=== PATIENT | male | born 1935 | race Caucasian/White ===

== ENCOUNTER 2021-06-06 17:25 | Inpatient (IN) | payer MEDICARE ==
[2021-06-06 18:07] LABS: Hemoglobin 9.7 g/dL (14.0-18.0); Mean Corpuscular HGB CONC 35.3 g/dL (32.0-36.0); Mean Platelet Volume 8.4 fL (7.4-10.4); Platelet Count 314 thou/uL (130-400); RBC Distribution Width 17.4 % (11.5-14.5); Red Blood Cell (RBC) Count 2.35 mill/uL (4.70-6.10); White Blood Cell (WBC) Count 2.6 thou/uL (4.8-10.8)
[2021-06-06 18:17] LABS: INR-International Normal Ratio 1.5; PTT 35.7 sec (22.9-36.1); Prothrombin Time 18.3 sec (12.0-14.7)
[2021-06-06 18:29] LABS: ALT (SGPT) 18 U/L (8-55); AST (SGOT) 15 U/L (5-34); Alkaline Phosphatase 61 U/L (40-110); Anion Gap 17 mmol/L (10-20); BUN (Urea Nitrogen) 19 mg/dL (8.4-25.7); Bilirubin, Total 3.1 mg/dL (0.2-1.2); Calc. Creatinine Clearance 0 mL/min (70-130); Calcium 8.2 mg/dL (7.8-10.44); Carbon Dioxide 20 mmol/L (23-31); Chloride 102 mmol/L (98-107); Globulin 2.9 g/dL (2.4-3.5); Glucose 187 mg/dL (83-110); Potassium 3.9 mmol/L (3.5-5.1); Protein, Total 5.9 g/dL (5.8-8.1); Sodium 135 mmol/L (136-145)
[2021-06-06 18:30] LABS: Anisocytosis SLIGHT = 6-15 cells (100X) (0-5/hpf); Band 19 % (5-11); Large Platelets SLIGHT; Lymphocytes 14 % (21-51); MDiff Complete? YES; Macrocytosis SLIGHT = 6-15 cells (100X) (0-5/hpf); Metamyelocyte 2 % (0-0); Monocytes 12 % (0-10); Myelocyte 2 % (0-0); Neutrophil 49 % (42-75); Nucleated RBC 1 % (0); Ovalocytes SLIGHT = 2-5 cells (100X) (0-1/hpf); Platelet Morphology Comment Appears Adequate; Polychromasia SLIGHT = 2-3 cells (100X) (0-2/hpf); Reactive Lymphocytes 2 % (0-10); Tear Drops SLIGHT = 2-5 cells (100X) (0-1/hpf)
[2021-06-06] MEDS ORDERED: Cefepime 2 GM VIAL ONE (18:36)
[2021-06-06 20:06] LABS: Bacteria/HPF 1+ HPF (None Seen); Bilirubin Negative (Negative); Blood, Urine 2+ (Negative); Clarity Clear (Clear); Glucose, Urine (Dipstick) 70 mg/dL (Negative); Ketone, Urine 10 mg/dL (Negative); Leukocyte Negative Leu/uL (Negative); Nitrite Negative (Negative); Protein, Urine (Dipstick) 10 mg/dL (Neg-Trace); Specific Gravity, Urine 1.011 (1.002-1.036); Squamous Epithelial None Seen HPF (0-3); Urobilinogen Normal mg/dL (Less than 2)
[2021-06-06] MEDS ORDERED: Dexamethasone 10 MG/ML VIAL ONE (20:41)
[2021-06-06] MEDS ORDERED: Vancomycin 1.5 GRAM/300 ML BAG 1.5 GM in Premix Bag 1 BAG IVPB SCH (21:00)
[2021-06-06 21:18] LABS: Lactic Acid 2.4 mmol/L (0.5-2.2)
[2021-06-07] MEDS ORDERED: Acetaminophen 325 MG TAB PO PRN (06:22)
[2021-06-07] MEDS ORDERED: Ondansetron PF 4 MG/2 ML Vial IVP PRN (06:22)
[2021-06-07] MEDS ORDERED: HumaLOG 300 UNITS/3 ML VIAL SC PRN ×2 (06:39)
[2021-06-07] MEDS ORDERED: Dextrose 50% Abboject 50 ML SYRINGE SLOW IVP PRN (06:39)
[2021-06-07] MEDS ORDERED: Dextrose 5% in Water 1,000 ML IV PRN (06:39)
[2021-06-07] MEDS ORDERED: Sodium Chloride 0.9% 500 ML IV SCH (06:45)
[2021-06-07 07:29] LABS: ALT (SGPT) 15 U/L (8-55); AST (SGOT) 13 U/L (5-34); Albumin 2.7 g/dL (3.4-4.8); Alkaline Phosphatase 59 U/L (40-110); Anion Gap 16 mmol/L (10-20); BUN (Urea Nitrogen) 21 mg/dL (8.4-25.7); Bilirubin, Direct 1.1 mg/dL (0.1-0.3); Bilirubin, Total 2.5 mg/dL (0.2-1.2); CRP (Inflammatory) 7.54 mg/dL (= or < 0.5); Calc. Creatinine Clearance 0 mL/min (70-130); Carbon Dioxide 16 mmol/L (23-31); Chloride 105 mmol/L (98-107); Glucose 269 mg/dL (83-110); Potassium 4.1 mmol/L (3.5-5.1); Protein, Total 5.7 g/dL (5.8-8.1); Sodium 133 mmol/L (136-145)
[2021-06-07] MEDS ORDERED: Zinc Sulfate 220 MG CAP ONE (08:55)
[2021-06-07] MEDS ORDERED: Dexamethasone 4 MG TAB ONE (08:58)
[2021-06-07] MEDS ORDERED: Enoxaparin Sodium 40 MG/0.4 ML SYRINGE SC SCH (09:00)
[2021-06-07] MEDS ORDERED: Famotidine 20 MG TAB ONE (09:31)
[2021-06-07] MEDS: Famotidine 20 MG TAB PO SCH ×2 (09:31→20:27)
[2021-06-07] MEDS: Zinc Sulfate 220 MG CAP PO SCH (09:31)
[2021-06-07] MEDS: Apixaban 5 MG TAB PO SCH ×2 (09:31→20:27)
[2021-06-07] MEDS: Dexamethasone 10 MG/ML VIAL SLOW IVP SCH ×2 (09:56→20:56)
[2021-06-07] MEDS: Ascorbic Acid 500 mg Chewable Tablet PO SCH (10:20)
[2021-06-07] MEDS ORDERED: Cefepime 2 GM VIAL ONE (12:06)
[2021-06-07] MEDS: Cefepime 2 GM in Sodium Chloride 0.9% 100 ML IVPB SCH ×2 (12:09→20:20)
[2021-06-07] MEDS ORDERED: HumaLOG 300 UNITS/3 ML VIAL ONE (13:03)
[2021-06-07 13:15] LABS: SARS-CoV-2 PCR by NAA DETECTED (NotDetected)
[2021-06-07 19:43] VITALS: BMI 22.5
[2021-06-07] MEDS ORDERED: VANCOMYCIN 1.25 GM/250 ML BAG 1.25 GM in Premix Bag 1 BAG IVPB SCH (21:00)
[2021-06-08] MEDS: Cefepime 2 GM in Sodium Chloride 0.9% 100 ML IVPB SCH ×2 (03:51→12:03)
[2021-06-08 04:39] LABS: Anion Gap 10 mmol/L (10-20); BUN (Urea Nitrogen) 24 mg/dL (8.4-25.7); CRP (Inflammatory) 5.43 mg/dL (= or < 0.5); Calc. Creatinine Clearance 78 mL/min (70-130); Calcium 7.9 mg/dL (7.8-10.44); Carbon Dioxide 21 mmol/L (23-31); Chloride 107 mmol/L (98-107); Glucose 269 mg/dL (83-110); Potassium 4.3 mmol/L (3.5-5.1); Sodium 134 mmol/L (136-145)
[2021-06-08 04:48] LABS: Band 13 % (5-11); Hemoglobin 8.1 g/dL (14.0-18.0); Lymphocytes 21 % (21-51); MDiff Complete? YES; Macrocytosis SLIGHT = 6-15 cells (100X) (0-5/hpf); Mean Corpuscular HGB CONC 33.4 g/dL (32.0-36.0); Mean Corpuscular Hemoglobin 39.2 pg (27.0-31.0); Mean Platelet Volume 8.4 fL (7.4-10.4); Monocytes 5 % (0-10); Myelocyte 2 % (0-0); Neutrophil 59 % (42-75); Platelet Count 256 thou/uL (130-400); Red Blood Cell (RBC) Count 2.06 mill/uL (4.70-6.10); Rouleaux Formation SLIGHT = 1-5 cells (100X) (None Seen)
[2021-06-08] MEDS: Apixaban 5 MG TAB PO SCH (08:51)
[2021-06-08] MEDS: Famotidine 20 MG TAB PO SCH (08:52)
[2021-06-08] MEDS: Ascorbic Acid 500 mg Chewable Tablet PO SCH (08:52)
[2021-06-08] MEDS: Zinc Sulfate 220 MG CAP PO SCH (08:52)
[2021-06-08] MEDS ORDERED: FLU VACC QS2021-22(65YR UP)/PF 240 MCG/0.7 ML SYRINGE IM ONE (09:00)
[2021-06-08] MEDS ORDERED: Dextrose 50% Abboject 50 ML SYRINGE SLOW IVP PRN (09:44)
[2021-06-08] MEDS ORDERED: Dextrose 5% in Water 1,000 ML IV PRN (09:44)
[2021-06-08] MEDS ORDERED: HumaLOG 300 UNITS/3 ML VIAL SC PRN (09:44)
[2021-06-08] MEDS: Dexamethasone 10 MG/ML VIAL SLOW IVP SCH (12:00)
[2021-06-08 15:26] VITALS: BP 99/59; TEMP 97.5
[2021-06-08] MEDS ORDERED: glipiZIDE 5 MG TAB PO SCH (21:00)
[2021-06-09] MEDS ORDERED: Dexamethasone 10 MG/ML VIAL SLOW IVP SCH (09:00)
[2021-06-09] MEDS ORDERED: Aspirin 81 mg Enteric Coated Tablet PO SCH (09:00)
== END 2021-06-08 17:51 | disposition left against medical advice (07) | DRG 871 ==
LOC: ERS 17:25 → ERHOLD 20:35 → 2NO 06-07 16:42
PROVIDERS: ADMIT Internal Medicine; ATTEND Internal Medicine
PROC: 8E0ZXY6 Isolation (ICD-10-PCS; principal; 2021-06-06)
DX: A41.89 Other specified sepsis (principal); Z66 Do not resuscitate; U07.1 COVID-19; J12.82 Pneumonia due to coronavirus disease 2019; J96.01 Acute respiratory failure with hypoxia; G93.41 Metabolic encephalopathy; R65.20 Severe sepsis without septic shock; N40.0 Benign prostatic hyperplasia without lower urinary tract symptoms; I10 Essential (primary) hypertension; I48.91 Unspecified atrial fibrillation; D64.9 Anemia, unspecified; Z53.29 Procedure and treatment not carried out because of patient's decision for other reasons; E11.65 Type 2 diabetes mellitus with hyperglycemia; I08.3 Combined rheumatic disorders of mitral, aortic and tricuspid valves; Z28.21 Immunization not carried out because of patient refusal; Z95.0 Presence of cardiac pacemaker; Z90.49 Acquired absence of other specified parts of digestive tract; Z79.899 Other long term (current) drug therapy; Z79.82 Long term (current) use of aspirin
CPT/HCPCS: 36415; 36416; 70450; 71045; 80048; 80053; 81003; 81015; 82248; 83605; 84145; 84484; 85025; 85379; 85610; 85730; 86140; 87040; 87086; 93005; 93306; 96365; 96367; 96375; J0692; J1100; J1815; J1956; J3370; J3490; J7030; J8540; U0003; U0005

== ENCOUNTER 2023-03-03 12:06 | Inpatient (IN) | payer MEDICARE, OTHER ==
[~2023-03-03 12:06] MED LIST: Iopamidol-370 76% 500 ML MDV (1 ML CHARGE) ONE
[2023-03-03 12:31] LABS: Hematocrit 23.6 % (42.0-52.0); Mean Corpuscular HGB CONC 33.9 g/dL (32.0-36.0); Mean Corpuscular Hemoglobin 39.6 pg (27.0-31.0); Mean Corpuscular Volume 116.8 fl (78.0-98.0); Mean Platelet Volume 11.1 fL (7.4-10.4); Platelet Count 121 10x3/uL (130-400); RBC Distribution Width 18.3 % (11.5-14.5); Red Blood Cell (RBC) Count 2.02 mill/uL (4.70-6.10); White Blood Cell (WBC) Count 3.4 10x3/uL (4.8-10.8)
[2023-03-03 12:32] LABS: Delete Auto Diff?? YES; Manual Diff?? YES
[2023-03-03 12:47] LABS: INR-International Normal Ratio 1.4; PTT 32.3 sec (22.9-36.1); Prothrombin Time 17.6 sec (12.0-14.7)
[2023-03-03 12:53] LABS: ALT (SGPT) 14 U/L (8-55); AST (SGOT) 21 U/L (5-34); Alkaline Phosphatase 83 U/L (40-110); Anion Gap 15 mmol/L (10-20); BUN (Urea Nitrogen) 31 mg/dL (8.4-25.7); Bilirubin, Total 0.9 mg/dL (0.2-1.2); Calc. Creatinine Clearance 0 mL/min (70-130); Calcium 8.7 mg/dL (7.8-10.44); Carbon Dioxide 25 mmol/L (23-31); Chloride 107 mmol/L (98-107); Estimated GFR 65; Globulin 2.2 g/dL (2.4-3.5); Glucose 134 mg/dL (83-110); Potassium 3.9 mmol/L (3.5-5.1); Protein, Total 6.2 g/dL (5.8-8.1); Sodium 143 mmol/L (136-145)
[2023-03-03 13:01] LABS: Anisocytosis SLIGHT = 6-15 cells HPF (0-5); Band 2 % (5-11); CellaVision Operator ID LAB.KB; Lymphocytes 34 % (21-51); Macrocytosis MODERATE=16-30 cells HPF (0-5); Monocytes 7 % (0-10); Myelocyte 4 % (0-0); Neutrophil 54 % (42-75); Nucleated RBC (Manual Ct) 2 % (0); Ovalocytes SLIGHT = 2-5 cells HPF (0-1); Platelet Adequacy Comment Platelets Decreased; Polychromasia SLIGHT = 2-3 cells HPF (0-2); Total Cell Count 101
[2023-03-03] MEDS ORDERED: Ipratropium/Albuterol 3 ML NEB ONE (13:32)
[2023-03-03] MEDS ORDERED: Acetaminophen 500 MG TAB ONE (16:14)
[2023-03-03] MEDS ORDERED: Morphine 2 MG/ML VIAL SLOW IVP PRN (17:06)
[2023-03-03] MEDS ORDERED: traMADol HCl 50 MG TAB PO PRN (17:06)
[2023-03-03] MEDS ORDERED: Ipratropium/Albuterol 3 ML NEB NEB PRN (17:06)
[2023-03-03] MEDS ORDERED: TETANUS, DIPHTHERIA TOX,ADULT (TDVAX) 0.5 ML VIAL IM ONE (17:06)
[2023-03-03] MEDS ORDERED: hydrALAZINE 20 MG/ML VIAL SLOW IVP PRN (17:06)
[2023-03-03] MEDS ORDERED: Ondansetron ODT 4 MG TAB PO PRN (17:06)
[2023-03-03] MEDS ORDERED: Dextrose 50% Abboject 50 ML SYRINGE SLOW IVP PRN (17:43)
[2023-03-03] MEDS ORDERED: Glucagon 1 MG/ML KIT IM PRN (17:43)
[2023-03-03] MEDS ORDERED: Dextrose 5% in Water 1,000 ML IV PRN (17:43)
[2023-03-03 21:03] LABS: Troponin I 0.024 ng/mL (< 0.028)
[2023-03-03] MEDS: Sodium Chloride 0.9% 1,000 ML IV SCH (21:05)
[2023-03-03] MEDS: Acetaminophen 325 MG TAB PO SCH (21:05)
[2023-03-03] MEDS: HumaLOG 300 UNITS/3 ML VIAL SC PRN (21:05)
[2023-03-03 23:02] VITALS: BMI 31.1
[2023-03-04] MEDS: Acetaminophen 325 MG TAB PO SCH ×2 (00:34→04:56)
[2023-03-04 05:43] LABS: Hematocrit 22.1 % (42.0-52.0); Hemoglobin 7.3 g/dL (14.0-18.0); Mean Corpuscular Volume 118.2 fl (78.0-98.0); Mean Platelet Volume 11.5 fL (7.4-10.4); Platelet Count 102 10x3/uL (130-400); RBC Distribution Width 18.6 % (11.5-14.5); Red Blood Cell (RBC) Count 1.87 mill/uL (4.70-6.10)
[2023-03-04 06:10] LABS: Anion Gap 11 mmol/L (10-20); BUN (Urea Nitrogen) 26 mg/dL (8.4-25.7); Calc. Creatinine Clearance 79 mL/min (70-130); Calcium 8.6 mg/dL (7.8-10.44); Carbon Dioxide 25 mmol/L (23-31); Chloride 108 mmol/L (98-107); Estimated GFR 79; Glucose 144 mg/dL (83-110); Potassium 3.9 mmol/L (3.5-5.1); Sodium 140 mmol/L (136-145)
[2023-03-04 06:14] LABS: Delete Auto Diff?? YES; Manual Diff?? YES
[2023-03-04] MEDS ORDERED: Acetaminophen 325 MG TAB PO SCH (07:32)
[2023-03-04] MEDS ORDERED: traMADol HCl 50 MG TAB PO PRN (07:33)
[2023-03-04 08:04] LABS: Band 8 % (5-11); CellaVision Operator ID LAB.GE; Hypochromia SLIGHT = 6-15 cells HPF (0-5); Large Platelets 5.8 % (0-5); Lymphocytes 23 % (21-51); Macrocytosis SLIGHT = 6-15 cells HPF (0-5); Monocytes 15 % (0-10); Neutrophil 53 % (42-75); Ovalocytes SLIGHT = 2-5 cells HPF (0-1); Platelet Adequacy Comment Platelets Decreased; Polychromasia MODERATE = 3-4 cells HPF (0-2); Tear Drops SLIGHT = 2-5 cells HPF (0-1); Total Cell Count 120
[2023-03-04] MEDS ORDERED: FLU VACC QS2023(65UP)/MF59C/PF 60 MCG/0.5 ML SYRINGE IM ONE (09:00)
[2023-03-04] MEDS: Acetaminophen 500 MG TAB PO SCH ×3 (11:46→23:40)
[2023-03-04] MEDS: Tamsulosin HCl 0.4 MG CAP PO SCH (11:46)
[2023-03-04] MEDS: Furosemide 20 MG TAB PO SCH (11:46)
[2023-03-04] MEDS: Senokot S 8.6-50 MG TAB PO SCH ×2 (11:46→21:18)
[2023-03-04] MEDS: Gabapentin 300 MG CAP PO SCH (11:47)
[2023-03-04] MEDS: Polyethylene Glycol 3350 17 GM Packet PO SCH (11:48)
[2023-03-04 14:45] LABS: Bacteria/HPF None Seen HPF (None Seen); Bilirubin Negative (Negative); Blood, Urine Negative (Negative); Clarity Clear (Clear); Glucose, Urine (Dipstick) 70 mg/dL (Negative); Ketone, Urine Negative (Negative); Leukocyte Negative Leu/uL (Negative); Nitrite Negative (Negative); Protein, Urine (Dipstick) Negative (Neg-Trace); RBC/HPF 0-3 HPF (0-3); Specific Gravity, Urine 1.026 (1.002-1.036); Squamous Epithelial None Seen HPF (0-3); Urobilinogen Normal mg/dL (Less than 2); WBC/HPF 0-3 HPF (0-3)
[2023-03-04] MEDS ORDERED: Hydrocortisone Sod Succ/PF 100 mg/2 ml Vial IVP SCH (15:00)
[2023-03-04] MEDS: Ferrous Sulfate 325 MG TAB PO SCH (16:23)
[2023-03-04] MEDS: traMADol HCl 50 MG TAB PO SCH ×2 (17:51→23:41)
[2023-03-04] MEDS: Ipratropium/Albuterol 3 ML NEB NEB SCH ×2 (18:08→18:44)
[2023-03-04] MEDS: HumaLOG 300 UNITS/3 ML VIAL SC PRN (18:47)
[2023-03-04] MEDS: Ascorbic Acid 500 mg Chewable Tablet PO SCH (21:17)
[2023-03-04] MEDS: Sodium Chloride 0.9% 1,000 ML IV SCH (21:19)
[2023-03-04] MEDS: Hydrocortisone Sod Succ/PF 100 mg/2 ml Vial IVP SCH (21:30)
[2023-03-05] MEDS: Ipratropium/Albuterol 3 ML NEB NEB SCH ×4 (02:18→18:52)
[2023-03-05] MEDS: traMADol HCl 50 MG TAB PO SCH ×4 (05:24→22:11)
[2023-03-05] MEDS: Acetaminophen 500 MG TAB PO SCH ×4 (05:25→22:10)
[2023-03-05] MEDS: Hydrocortisone Sod Succ/PF 100 mg/2 ml Vial IVP SCH ×3 (05:25→22:11)
[2023-03-05 05:42] LABS: #Monocytes 0.4 thou/uL (0.11-0.59); #Neutrophils 2.6 thou/uL (1.40-6.50); %Lymphocytes 14.9 % (21.0-51.0); %Neutrophils 69.8 % (42.0-75.0); Hematocrit 20.1 % (42.0-52.0); Hemoglobin 6.7 g/dL (14.0-18.0); Mean Corpuscular HGB CONC 33.3 g/dL (32.0-36.0); Mean Corpuscular Hemoglobin 39.2 pg (27.0-31.0); Mean Corpuscular Volume 117.5 fl (78.0-98.0); Mean Platelet Volume 10.9 fL (7.4-10.4); RBC Distribution Width 18.6 % (11.5-14.5); Red Blood Cell (RBC) Count 1.71 mill/uL (4.70-6.10); White Blood Cell (WBC) Count 3.7 10x3/uL (4.8-10.8)
[2023-03-05 05:52] LABS: Platelet Count 82 10x3/uL (130-400)
[2023-03-05 06:24] LABS: Anisocytosis SLIGHT = 6-15 cells HPF (0-5); CellaVision Operator ID lab.abc; Macrocytosis MODERATE=16-30 cells HPF (0-5); Platelet Adequacy Comment Significant decrease; Polychromasia SLIGHT = 2-3 cells HPF (0-2)
[2023-03-05] MEDS: HumaLOG 300 UNITS/3 ML VIAL SC PRN ×2 (06:43→17:23)
[2023-03-05] MEDS: Ascorbic Acid 500 mg Chewable Tablet PO SCH ×2 (10:02→22:11)
[2023-03-05] MEDS: Gabapentin 300 MG CAP PO SCH (10:02)
[2023-03-05] MEDS: Ferrous Sulfate 325 MG TAB PO SCH ×2 (10:02→17:23)
[2023-03-05] MEDS: Tamsulosin HCl 0.4 MG CAP PO SCH (10:02)
[2023-03-05] MEDS: Senokot S 8.6-50 MG TAB PO SCH ×2 (10:02→22:11)
[2023-03-05] MEDS: Fluticasone Propionate Nasal Spray 16 gm Bottle NASAL SCH (10:03)
[2023-03-05] MEDS: Furosemide 20 MG TAB PO SCH (10:03)
[2023-03-05] MEDS: Polyethylene Glycol 3350 17 GM Packet PO SCH (10:03)
[2023-03-05 19:08] LABS: #Neutrophils 5.9 thou/uL (1.40-6.50); %Basophils 0.1 % (0.0-1.0); %Lymphocytes 8.2 % (21.0-51.0); %Monocytes 12.9 % (0.0-10.0); %Neutrophils 76.5 % (42.0-75.0); Hematocrit 21.2 % (42.0-52.0); Hemoglobin 7.1 g/dL (14.0-18.0); Mean Corpuscular HGB CONC 33.5 g/dL (32.0-36.0); Mean Corpuscular Hemoglobin 38.2 pg (27.0-31.0); Mean Platelet Volume 11.1 fL (7.4-10.4); Platelet Count 93 10x3/uL (130-400); RBC Distribution Width 22.3 % (11.5-14.5); Red Blood Cell (RBC) Count 1.86 mill/uL (4.70-6.10); White Blood Cell (WBC) Count 7.7 10x3/uL (4.8-10.8)
[2023-03-06] MEDS: Ipratropium/Albuterol 3 ML NEB NEB SCH ×5 (01:03→21:37)
[2023-03-06] MEDS: Acetaminophen 500 MG TAB PO SCH ×4 (06:16→23:47)
[2023-03-06] MEDS: traMADol HCl 50 MG TAB PO SCH ×4 (06:17→23:47)
[2023-03-06] MEDS: Hydrocortisone Sod Succ/PF 100 mg/2 ml Vial IVP SCH ×2 (06:17→21:17)
[2023-03-06 06:59] LABS: #Monocytes 0.6 thou/uL (0.11-0.59); #Neutrophils 4.1 thou/uL (1.40-6.50); %Basophils 0.2 % (0.0-1.0); %Monocytes 9.8 % (0.0-10.0); %Neutrophils 72.6 % (42.0-75.0); Hematocrit 20.2 % (42.0-52.0); Hemoglobin 6.9 g/dL (14.0-18.0); Mean Corpuscular HGB CONC 34.2 g/dL (32.0-36.0); Mean Corpuscular Hemoglobin 38.8 pg (27.0-31.0); Mean Corpuscular Volume 113.5 fl (78.0-98.0); Mean Platelet Volume 11.7 fL (7.4-10.4); Platelet Count 93 10x3/uL (130-400); RBC Distribution Width 21.7 % (11.5-14.5); Red Blood Cell (RBC) Count 1.78 mill/uL (4.70-6.10); White Blood Cell (WBC) Count 5.6 10x3/uL (4.8-10.8)
[2023-03-06 07:22] LABS: ALT (SGPT) 12 U/L (8-55); AST (SGOT) 11 U/L (5-34); Albumin 3.5 g/dL (3.4-4.8); Alkaline Phosphatase 64 U/L (40-110); Anion Gap 12 mmol/L (10-20); BUN (Urea Nitrogen) 22 mg/dL (8.4-25.7); Bilirubin, Total 0.9 mg/dL (0.2-1.2); Calc. Creatinine Clearance 67 mL/min (70-130); Calcium 8.4 mg/dL (7.8-10.44); Carbon Dioxide 23 mmol/L (23-31); Chloride 106 mmol/L (98-107); Estimated GFR 65; Globulin 2.2 g/dL (2.4-3.5); Glucose 275 mg/dL (83-110); Potassium 4.3 mmol/L (3.5-5.1); Protein, Total 5.7 g/dL (5.8-8.1); Sodium 137 mmol/L (136-145)
[2023-03-06 08:00] LABS: CellaVision Operator ID LAB.GE; Hypochromia SLIGHT = 6-15 cells HPF (0-5); Large Platelets 8.5 % (0-5); Ovalocytes SLIGHT = 2-5 cells HPF (0-1); Platelet Adequacy Comment Platelets Decreased; Polychromasia MODERATE = 3-4 cells HPF (0-2)
[2023-03-06] MEDS: Tamsulosin HCl 0.4 MG CAP PO SCH (09:09)
[2023-03-06] MEDS: Ascorbic Acid 500 mg Chewable Tablet PO SCH ×2 (09:09→21:16)
[2023-03-06] MEDS: Gabapentin 300 MG CAP PO SCH (09:09)
[2023-03-06] MEDS: Furosemide 20 MG TAB PO SCH (09:09)
[2023-03-06] MEDS: Ferrous Sulfate 325 MG TAB PO SCH ×2 (09:09→16:19)
[2023-03-06] MEDS: Fluticasone Propionate Nasal Spray 16 gm Bottle NASAL SCH (09:10)
[2023-03-06] MEDS: Polyethylene Glycol 3350 17 GM Packet PO SCH (10:26)
[2023-03-06] MEDS: Senokot S 8.6-50 MG TAB PO SCH ×2 (10:26→21:16)
[2023-03-06] MEDS: HumaLOG 300 UNITS/3 ML VIAL SC PRN ×2 (13:28→22:53)
[2023-03-06 14:31] LABS: Immunoglob - A (Total IgA) 144 mg/dL (101-645); Immunoglob - G (Total IgG) 1041 mg/dL (Not Available); Immunoglob - M (Total IgM) 81 mg/dL (22-240)
[2023-03-07] MEDS: Acetaminophen 500 MG TAB PO SCH ×3 (05:32→17:18)
[2023-03-07] MEDS: traMADol HCl 50 MG TAB PO SCH ×3 (05:33→17:18)
[2023-03-07 06:26] LABS: Hematocrit 22.8 % (42.0-52.0); Hemoglobin 7.6 g/dL (14.0-18.0); Mean Corpuscular HGB CONC 33.3 g/dL (32.0-36.0); Mean Corpuscular Hemoglobin 37.1 pg (27.0-31.0); Mean Corpuscular Volume 111.2 fl (78.0-98.0); Mean Platelet Volume 12.1 fL (7.4-10.4); Platelet Count 102 10x3/uL (130-400); RBC Distribution Width 22.4 % (11.5-14.5); Red Blood Cell (RBC) Count 2.05 mill/uL (4.70-6.10); White Blood Cell (WBC) Count 4.7 10x3/uL (4.8-10.8)
[2023-03-07 06:27] LABS: Delete Auto Diff?? YES; Manual Diff?? YES
[2023-03-07 06:34] LABS: Anion Gap 13 mmol/L (10-20); BUN (Urea Nitrogen) 25 mg/dL (8.4-25.7); Calc. Creatinine Clearance 67 mL/min (70-130); Calcium 8.4 mg/dL (7.8-10.44); Carbon Dioxide 25 mmol/L (23-31); Chloride 104 mmol/L (98-107); Estimated GFR 65; Glucose 285 mg/dL (83-110); Magnesium 1.9 mg/dL (1.6-2.6); Phosphorus 2.9 mg/dL (2.3-4.7); Potassium 4.1 mmol/L (3.5-5.1); Sodium 138 mmol/L (136-145)
[2023-03-07] MEDS: HumaLOG 300 UNITS/3 ML VIAL SC PRN ×2 (06:52→14:13)
[2023-03-07 07:29] LABS: Band 10 % (5-11); CellaVision Operator ID LAB.GE; Hypochromia SLIGHT = 6-15 cells HPF (0-5); Large Platelets 4.7 % (0-5); Lymphocytes 12 % (21-51); Macrocytosis SLIGHT = 6-15 cells HPF (0-5); Metamyelocyte 1 % (0-0); Monocytes 7 % (0-10); Myelocyte 4 % (0-0); Neutrophil 66 % (42-75); Nucleated RBC (Manual Ct) 1 % (0); Ovalocytes SLIGHT = 2-5 cells HPF (0-1); Platelet Adequacy Comment Platelets Decreased; Polychromasia SLIGHT = 2-3 cells HPF (0-2); Total Cell Count 107
[2023-03-07] MEDS: Ipratropium/Albuterol 3 ML NEB NEB SCH ×2 (07:46→12:30)
[2023-03-07] MEDS: Senokot S 8.6-50 MG TAB PO SCH (08:36)
[2023-03-07] MEDS: Furosemide 20 MG TAB PO SCH (08:36)
[2023-03-07] MEDS: Ascorbic Acid 500 mg Chewable Tablet PO SCH (08:36)
[2023-03-07] MEDS: Ferrous Sulfate 325 MG TAB PO SCH ×2 (08:36→17:18)
[2023-03-07] MEDS: Tamsulosin HCl 0.4 MG CAP PO SCH (08:36)
[2023-03-07] MEDS: Fluticasone Propionate Nasal Spray 16 gm Bottle NASAL SCH (08:37)
[2023-03-07] MEDS: Gabapentin 300 MG CAP PO SCH (08:38)
[2023-03-07] MEDS: Hydrocortisone Sod Succ/PF 100 mg/2 ml Vial IVP SCH (08:38)
[2023-03-07] MEDS: Polyethylene Glycol 3350 17 GM Packet PO SCH (08:39)
[2023-03-07 13:37] LABS: Kappa Lambda Light Chain Ratio 1.52 (0.26-1.65); Kappa Light Chains 30.3 mg/L (3.3-19.4); Lambda Light Chain 19.9 mg/L (5.7-26.3)
[2023-03-07 16:37] VITALS: BP 113/62; TEMP 98.8
[2023-03-08 21:13] LABS: Beta-2-Microglobulin 2.8 mg/L (0.6-2.4)
[2023-03-10 16:13] LABS: IgA - Total IgA (Sendout) 151 mg/dL (61-437); Immunoglobulin - G (Sendout) 1001 mg/dL (603-1613); Immunoglobulin - M (Sendout) 75 mg/dL (15-143)
== END 2023-03-07 17:30 | DRG 536 ==
LOC: ERS 12:06 → SJJU 17:10
PROVIDERS: ADMIT Specialist; ATTEND Specialist
PROC: 30233N1 Transfusion of Nonautologous Red Blood Cells into Peripheral Vein, Percutaneous Approach (ICD-10-PCS; principal; 2023-03-05)
DX: S32.592A Other specified fracture of left pubis, initial encounter for closed fracture (principal); S32.10XA Unspecified fracture of sacrum, initial encounter for closed fracture; D61.818 Other pancytopenia; D62 Acute posthemorrhagic anemia; C90.00 Multiple myeloma not having achieved remission; S32.302A Unspecified fracture of left ilium, initial encounter for closed fracture; V80.010A Animal-rider injured by fall from or being thrown from horse in noncollision accident, initial encounter; Z79.899 Other long term (current) drug therapy; Z79.01 Long term (current) use of anticoagulants; Z79.84 Long term (current) use of oral hypoglycemic drugs; I48.91 Unspecified atrial fibrillation; K59.00 Constipation, unspecified; Z90.49 Acquired absence of other specified parts of digestive tract; Z90.89 Acquired absence of other organs; Z98.890 Other specified postprocedural states; E11.42 Type 2 diabetes mellitus with diabetic polyneuropathy; D46.9 Myelodysplastic syndrome, unspecified
CPT/HCPCS: 36415; 36416; 36430; 70450; 71260; 72125; 72197; 74177; 80048; 80053; 81001; 82232; 82533; 83615; 83735; 83880; 83883; 84100; 84484; 84702; 85025; 85610; 85730; 86334; 86850; 86870; 86900; 86901; 86905; 86922; 88184; 88185; 88189; 93005; 94640; G0103; G0390; J1650; J1720; J1815; J7050; J7620; P9016; Q9967